=== PATIENT | female | born 1935 | race Caucasian/White ===

== ENCOUNTER → 2016-03-07 | Outpatient (CLI) | payer MEDICARE, OTHER | LOC: GMAL 15:29 | PROVIDERS: ATTEND Family Medicine | DX: D51.3 Other dietary vitamin B12 deficiency anemia (principal); R53.83 Other fatigue; E55.9 Vitamin D deficiency, unspecified ==

== ENCOUNTER → 2016-04-11 | Outpatient (CLI) | payer MEDICARE ==
--- NOTE | 2016-04-12 11:34 | CT ---
Study: CT neck. CT chest. Indication: CHEST PAIN . Facial swelling. Clinical concern for SVC syndrome. Technique: CT imaging of the neck and chest obtained with and without intravenous administration of contrast. Comparison: None. Findings: Anterior to the left parotid gland there are two nodular foci of fat density measuring up to 17 mm and 9 mm, which may reflect areas of fat necrosis or unusual lymph nodes. No pathologically enlarged cervical chain lymphadenopathy. Atherotic changes of the great vessels, aorta, coronary arteries without high-grade carotid stenosis identified. Mild cardiomegaly. No pathologically enlarged mediastinal or hilar lymphadenopathy. The SVC appears slightly contracted but is difficult to evaluate due to streak artifact related to the injection. Exclusion of thrombus cannot be performed. However, no surrounding inflammation identified about the SVC. The bilateral internal jugular veins are patent. Mucosa of the aerodigestive tract is unremarkable. Moderate emphysema. Patchy areas of scarring noted in the right middle lobe and lingula. In addition, there are several tiny areas of tree-in-bud opacities within the right middle lobe. No pleural effusion or pneumothorax. Degenerative changes of the spine. Osteopenia. Impression: Contracted appearance of the SVC, which is nonspecific. Evaluation for thrombosis is difficult given phase of injection and streak artifact from right-sided injection. If concern for thrombosis, repeat CT chest with IV contrast recommended to include venous and delayed phase sequences and have the injection at the left arm instead of the right arm. Mild tree-in-bud nodular opacity right middle lobe. This can be seen with atypical infection. Atherosclerosis. Mild cardiomegaly. Two foci of presumed fat necrosis anterior to the left parotid gland. Additional findings as above. Findings were discussed with Dr. Santoro at 1100 hours on 04/12/2016. Electronically signed by: Dane Cantor MD 04/12/2016 11:33 AM [employer]
== END ==
LOC: CT 13:14
PROVIDERS: ATTEND Family Medicine
DX: M54.2 Cervicalgia (principal); R07.9 Chest pain, unspecified; I51.7 Cardiomegaly; E27.0 Other adrenocortical overactivity; I70.90 Unspecified atherosclerosis

== ENCOUNTER → 2016-04-14 | Outpatient (CLI) | payer MEDICARE | LOC: LAB.O 08:20 | PROVIDERS: ATTEND Family Medicine | DX: E27.0 Other adrenocortical overactivity (principal) ==

== ENCOUNTER → 2016-04-22 | Outpatient (CLI) | payer MEDICARE ==
--- NOTE | 2016-04-22 14:13 | CT ---
EXAM DESCRIPTION: Chest w/Contrast CLINICAL HISTORY: SUPERIOR VENA CAVA SYNDROME COMPARISON: April 11, 2016 TECHNIQUE: Chest CT was performed with IV contrast. FINDINGS: The superior vena cava is of slightly decreased caliber, questionable clinical significance. There is no thrombus or other intrinsic filling defect or extrinsic mediastinal mass resulting SVC compression. There is no pleural or pericardial effusion. No mediastinal or hilar adenopathy. Mural calcifications are noted in the thoracic aorta and coronary arteries. The central airways are clear. Emphysematous changes are noted. Again seen is mild interstitial prominence with a few tiny nodular densities in the right middle lobe, stable. No new airspace consolidation or new lung nodule. Vascular calcifications are noted in the upper abdomen. There is colonic diverticulosis without diverticulitis only partially visualized. Degenerative changes are present in the thoracolumbar spine at several levels including mild/moderate convex leftward scoliosis only partially visualized. IMPRESSION: Slightly decreased caliber of the SVC likely normal for patient with no evidence of SVC thrombus or mediastinal mass resulting in SVC compression. Small nodular and linear densities in the right middle lobe unchanged from the previous CT. Differential considerations as described previously including components of scarring, atelectasis and/or atypical infection. Emphysema. Atherosclerotic vascular disease. Colonic diverticulosis without diverticulitis, only partially visualized. Electronically signed by: Diaz Brush MD 04/22/2016 2:12 PM PROSPECTING OBSERVER
== END | disposition home or self-care (01) ==
LOC: CT 10:16
PROVIDERS: ATTEND Family Medicine
DX: I82.210 Acute embolism and thrombosis of superior vena cava (principal)

== ENCOUNTER 2016-07-24 19:07 | Emergency (ER) | payer MEDICARE ==
--- NOTE | 2016-07-24 19:26 | ED.PDOC ---
History of Present Illness - General Chief Complaint: Lower Extremity Injury Stated Complaint: fall/right foot pain Time Seen by Provider: 07/24/16 19:23 Source: patient Exam Limitations: no limitations - History of Present Illness Initial Comments: Petra Verduzco 81 y/o female stated that she slipped and twisted left foot while walking at home.Denies neck,head ,hip injury.Pain on weight bearing left foot. Occurred: this morning Pain - Lower Extremity: moderate: Left Foot Method of Injury: twisted Improving Factors: nothing Worsening Factors: movement Allergies/Adverse Reactions: Allergies Hydrocodone [From [place]] Allergy (Mild, Verified 07/24/16 19:28) itching Home Medications: Ambulatory Orders Amlodipine Besylate-Atorvastat [Caduet 5-40 mg] 1 tab PO DAILY 07/24/16 Ascorbic Acid [Vitamin C] 1,000 mg PO DAILY 07/24/16 Aspirin [Tgt Aspirin Low Dose] 81 mg PO DAILY 07/24/16 Cholecalciferol [Vitamin D] 2,000 unit PO DAILY 07/24/16 Cyanocobalamin [Vitamin B12] 1,000 mcg PO DAILY@0707/24/16 Diphenhydramine-Acetaminophen [Tylenol Pm Extra Strength 500-25 mg] 2 tab PO BEDTIME 07/24/16 Liraglutide [Victoza] 0.6 mg SC DAILY 07/24/16 Metoprolol Succinate [Metoprolol Succinate ER] 100 mg PO DAILY@0700 07/24/16 [id number] Ethyl Esters [Lovaza 1 gm] 2 cap PO BID 07/24/16 Omeprazole Magnesium [Prilosec Otc] 20 mg PO DAILY@0700 07/24/16 Sitagliptin Phosphate [Januvia] 50 mg PO DAILY 07/24/16 Tramadol HCl 50 mg PO TID PRN #14 tab 07/24/16 Review of Systems - Review of Systems Constitutional: States: no symptoms reported EENTM: States: no symptoms reported Respiratory: States: short of breath - has copd Cardiology: States: no symptoms reported Gastrointestinal/Abdominal: States: no symptoms reported Genitourinary: States: no symptoms reported Musculoskeletal: States: see HPI, joint pain - foot left Skin: States: no symptoms reported Neurological: States: no symptoms reported Past Medical History (General) - Patient Medical History Hx of COPD: Yes Hx Cardiac Disorders: Yes Hx Hypertension: Yes Surgical History: appendectomy, other - hysterectomy,hernia repair - Social History Hx Tobacco Use: Yes - quit 5 years ago Hx Alcohol Use: No Hx Substance Use: No - Activities of Daily Living Grooming Ability: Independent Eating (Feeding) Ability: Independent Toileting Ability: Standby Assistance - Female History Patient is a Female of Child Bearing Age (10 -59 yrs old): No Family Medical History - Family History Father Family History: Unknown Mother Family History: No Known Living Status: Physical Exam - Physical Exam General Appearance: Alert, No apparent distress Eyes, Ears, Nose, Throat: PERRL/EOMI, normal ENT inspection, TMs normal, pharynx normal Neck: non-tender, full range of motion, supple Cardiovascular/Respiratory: regular rate, rhythm, no M/R/G, normal peripheral pulses Gastrointestinal/Abdominal: non-tender, no organomegaly Back: normal inspection, no CVA tenderness Thigh/Hip: normal inspection, no evidence of injury Leg: normal inspection, no evidence of injury Knee: normal inspection, no evidence of injury Ankle: normal inspection, no evidence of injury Foot: normal inspection, bone tenderness - left foot Neuro/Tendon: normal sensation, normal motor functions, responds to pain, no evidence tendon injury Mental Status: alert, oriented x 3 Skin: normal color, warm/dry Progress - EKG/XRAY/CT XRAY: left foot-no acute fracture/radiologist Departure - Departure Clinical Impression: Sprain of left foot Qualifiers: Encounter type: initial encounter Qualified Code(s): S93.602A - Unspecified sprain of left foot, initial encounter Time of Disposition: 20:02 Disposition: Discharge to Home or Self Care Instructions: DI for Foot Sprain Activity: ambulate only with walker Referrals: Saad Santoro III, MD [Primary Care Provider] - 1-2 Weeks Prescriptions: Tramadol HCl 50 mg PO TID PRN #14 tab PRN Reason: Pain Home Medications: Ambulatory Orders Amlodipine Besylate-Atorvastat [Caduet 5-40 mg] 1 tab PO DAILY 07/24/16 Ascorbic Acid [Vitamin C] 1,000 mg PO DAILY 07/24/16 Aspirin [Tgt Aspirin Low Dose] 81 mg PO DAILY 07/24/16 Cholecalciferol [Vitamin D] 2,000 unit PO DAILY 07/24/16 Cyanocobalamin [Vitamin B12] 1,000 mcg PO DAILY@0707/24/16 Diphenhydramine-Acetaminophen [Tylenol Pm Extra Strength 500-25 mg] 2 tab PO BEDTIME 07/24/16 Liraglutide [Victoza] 0.6 mg SC DAILY 07/24/16 Metoprolol Succinate [Metoprolol Succinate ER] 100 mg PO DAILY@0707/24/16 [id number] Ethyl Esters [Lovaza 1 gm] 2 cap PO BID 07/24/16 Omeprazole Magnesium [Prilosec Otc] 20 mg PO DAILY@69907/24/16 Sitagliptin Phosphate [Januvia] 50 mg PO DAILY 07/24/16 Tramadol HCl 50 mg PO TID PRN #14 tab 07/24/16 Additional Instructions: Ice pack to affected area 20 minutes 3 x a day during waking hours only
[2016-07-24 19:34] VITALS: BP 160/74; TEMP 98.2; O2SAT 88
--- NOTE | 2016-07-24 19:58 | RAD ---
EXAM: Three view(s) of the left foot. INDICATION: Pain. COMPARISON: None. FINDINGS: No acute fracture or dislocation. Vascular calcifications are noted No large soft tissue swelling. IMPRESSION: 1. No acute fracture. Electronically signed by: Sandip Meléndez MD 07/24/2016 7:58 PM CDT Workstation: [id number]
[2016-07-24] MEDS ORDERED: traMADol HCL 50 MG (ER DISP) # 6 TABS PO ONE (20:07)
== END 2016-07-24 20:18 | disposition home or self-care (01) ==
LOC: ER 19:07
DX: S93.602A Unspecified sprain of left foot, initial encounter (principal); J44.9 Chronic obstructive pulmonary disease, unspecified; I10 Essential (primary) hypertension; Z88.6 Allergy status to analgesic agent; Z79.82 Long term (current) use of aspirin; Z79.899 Other long term (current) drug therapy; X50.1XXA Overexertion from prolonged static or awkward postures, initial encounter; Y92.009 Unspecified place in unspecified non-institutional (private) residence as the place of occurrence of the external cause

== ENCOUNTER → 2016-08-10 | Outpatient (CLI) | payer MEDICARE | END | disposition home or self-care (01) | LOC: LAB.O 11:22 | PROVIDERS: ATTEND Family Medicine | DX: L65.8 Other specified nonscarring hair loss (principal) ==

== ENCOUNTER → 2016-08-22 | Outpatient (CLI) | payer MEDICARE | END | disposition home or self-care (01) | LOC: GMAL 12:51 | PROVIDERS: ATTEND Family Medicine | DX: E55.9 Vitamin D deficiency, unspecified (principal) ==

== ENCOUNTER → 2016-11-29 | Outpatient (CLI) | payer MEDICARE ==
--- NOTE | 2016-12-01 10:22 | MAM ---
EXAM DESCRIPTION: Screening Mammogram,Bilateral: Digital Mammography CLINICAL HISTORY: 81 years Female SCREENING no complaints. Sister with breast cancer. Postmenopausal. HRT five or more years ago. COMPARISON: 2-D digital screening bilateral study 03/14/2012.. No prior reports available. TECHNIQUE: Bilateral CC and MLO projection full-field images, 2-D digital screening mammographic technique. CAD was utilized. FINDINGS: The breast parenchymal density pattern is: Scattered areas of fibroglandular density. No skin thickening or nipple retraction bilateral solitary microcalcifications. Bilateral intramammary lymph nodes. No focal, stellate mass or density, focal asymmetry , and no suspicious microcalcifications bilaterally. Stable mammograms compared to the prior study, taking into account differences in mammographic technique. IMPRESSION: BI-RADS CATEGORY: 2 - BENIGN FINDINGS. FOLLOW UP: Routine digital bilateral screening, one year interval from November 2016. Written communication explaining the IMPRESSION and follow-up, will be mailed to the patient and referring health care provider. According to the [employer], yearly mammograms are recommended starting at age 40 and continuing as long as a woman is in good health. Any breast change noted on a breast self-exam should be reported promptly to the patient's healthcare provider. Breast MRI is recommended for women with an approximately 20-25% or greater lifetime risk of breast cancer, including women with a strong family history of breast or ovarian cancer and women who have been treated for Hodgkin's disease. A negative mammographic report should not delay tissue diagnosis in patients with significant clinical history or physical findings. Extremely dense breast tissue limits the sensitivity of digital mammography. Electronically signed by: Alex Felder MD 12/01/2016 10:21 AM CDT
== END ==
LOC: MAMMO 10:02
PROVIDERS: ATTEND Family Medicine
DX: Z12.31 Encounter for screening mammogram for malignant neoplasm of breast (principal)

== ENCOUNTER 2016-11-30 12:00 | Inpatient (IN) | payer MEDICARE ==
--- NOTE | 2016-11-30 12:11 | HP ---
HISTORY OF PRESENT ILLNESS: This 81 year-old white female has developed worsening shortness of breath over the last couple of days. She has a pulse oximetry machine at home and has noted it occasionally down in the upper 50s and 60% on a daily basis. She came in to be seen by Dr. Santoro and was referred to the nurse practitioner who requested Dr. Santoro look at her, who found that she was apparently having an acute exacerbation of her chronic obstructive pulmonary disease with significant hypoxia. She has had some similar symptoms about 4 years ago with pneumonia. Chest x-ray was performed and no pneumonia was specifically appreciated. She has had bronchitis about a year ago, otherwise she does well. She has no oxygen at home. The only inhalation that she takes is an inhaled steroid preparation. No bronchodilators apparently. She is getting some lab studies and the results are pending, and she is referred for direct admission to the hospital because of the significance of the hypoxia and the COPD. No significant coughing. No hemoptysis. No significant fever or chills are noted. PAST MEDICAL HISTORY: 1. Chronic obstructive pulmonary disease. 2. Family history of IHSS, yet no evidence of it was noted on her cardiac evaluations by Dr. Siddiqui in [facility]. 3. History of diabetes mellitus type 2. PAST SURGICAL HISTORY: 1. Hysterectomy. 2. Ovarian removal. 3. Appendectomy. 4. Partial colectomy due to an obstruction of the colon. 5. Three hernia surgeries. CURRENT MEDICATIONS: Please refer to list of medications reviewed by the nurse and verified for home use. ALLERGIES: OXYCODONE. FAMILY HISTORY: Positive for coronary artery disease, diabetes mellitus, cancer and strokes. SOCIAL HISTORY: She has worked as an dental office receptionist and she stopped smoking about 2012. Her in 2008 from apparent throat or tonsillar cancer. REVIEW OF SYSTEMS: Hearing and vision appears to be fairly good. LUNGS: Some marked shortness of breath is evident upon exertion in recent days with significant desaturation noted on her pulse oximetry machine. No hemoptysis or significant sputum production. CARDIOVASCULAR: Chest tightness is evident. No palpitations. GASTROINTESTINAL: No nausea, vomiting, diarrhea or blood in the stools. GENITOURINARY: No discomfort upon urination. EXTREMITIES: No significant edema. NEUROLOGIC: No focal weaknesses but she does have headaches occasionally. PHYSICAL EXAMINATION: VITAL SIGNS: Please refer to the chart. GENERAL: The patient is otherwise awake and alert. She is able to eat her diet quite well. She is able to answer questions appropriately. HEENT: Within normal limits. NECK: Supple. No carotid bruits or adenopathy noted. CHEST: Lungs have markedly diminished breath sounds with breath sounds being slightly more prominent on the right compared to the left. No significant rales or wheezing at this time. The patient appears to be able to talk with sentences but does have some difficulty in prolonged speaking because of the dyspnea associated. She does have oxygen in place. CARDIOVASCULAR: Heart rhythm is fairly good. No significant gallops. ABDOMEN: Soft, slightly distended. No organomegaly, masses or tenderness. Bowel tones are present. EXTREMITIES: Fairly good range of motion is noted. No significant pedal edema. NEUROLOGIC: No focal neurological deficits are noted. The patient is awake, alert and oriented and communicative. LABORATORY STUDIES: Laboratory studies are ordered. Verbal order from the clinic states that the patient did not show any significant infiltrative processes on chest x-ray. Reevaluate on receipt of lab studies. ASSESSMENT: 1. Chronic obstructive pulmonary disease with an acute exacerbation. 2. Significant dyspnea with associated hypoxia of a significant nature down into the 50s and 60% documented on pulse oximetry. 3. Diabetes mellitus type 2 on oral therapy as well as injections of a non- insulin medication. PLAN: The patient is admitted to the hospital for initiation of vigorous treatment, including bronchodilator therapy as well as pulmonary hygiene. She will be scheduled for ambulation studies to check on the degree of ambulation desaturation. She will be continued on DuoNeb. She was given some Decadron with the initial DuoNeb and will be continued. She will be started on Rocephin and Azithromycin after blood cultures are obtained as efforts to rule out underlying infections have contributed to her symptoms. Troponin, BNP, blood cultures are ordered. Urinalysis is pending. She was given Solu-Medrol 40 mg every 8 hours to assist with the significant respiratory distress and associated hypoxia. May eventually require oxygen at home. Evaluation to continue. Recheck evaluation as clinical course progresses. #[id number] [facility]
[2016-11-30] MEDS ORDERED: SODIUM CHLORIDE 0.9% 1000ML 1,000 ML IVS PRN (14:56)
[2016-11-30] MEDS ORDERED: GLUCAGON INJ 1 MG VIAL SUBCU PRN (14:56)
[2016-11-30] MEDS ORDERED: DEXTROSE 50% 25 GM/50 ML SYG IV PRN (14:56)
[2016-11-30] MEDS ORDERED: IV SET AND CAP CHANGE INJ INJ SCH (15:00)
[2016-11-30] MEDS ORDERED: DEXAMETHASONE INJ 1 MG, SODIUM CHLORIDE 0.9% NEB 3 ML NEB ONE ×2 (15:06)
--- NOTE | 2016-11-30 15:28 | PCM.CORE ---
Physician DVT/VTE - 2 Moderate Risk Treatments: Sequential Compression Device Pharmacological: Enoxaparin 40mg SQ Daily
[2016-11-30] MEDS: IPRATROPIUM/ALBUTEROL 3 ML VIAL NEB SCH ×3 (16:00→20:25)
[2016-11-30] MEDS ORDERED: SODIUM CHL 0.9% 50ML MIN-BAG+ 50 ML IVPB ONE ×2 (16:35→19:35)
[2016-11-30] MEDS ORDERED: cefTRIAXone SODIUM 1 GM VIAL ONE ×2 (16:36→19:35)
[2016-11-30] MEDS: LIRAGLUTIDE 0.6 MG SC SCH (17:30)
[2016-11-30] MEDS: AZITHROMYCIN 250 MG TAB PO SCH (17:32)
[2016-11-30] MEDS: LORATADINE 10 MG TAB PO SCH (17:32)
[2016-11-30] MEDS: cefTRIAXone SODIUM 1 GM in SODIUM CHL 0.9% 50ML MIN-BAG+ 50 ML IVPB SCH (17:33)
[2016-11-30] MEDS: ENOXAPARIN SODIUM 40 MG/0.4 ML SYG SUBCU SCH (17:34)
[2016-11-30] MEDS: methylPREDNISolone SODIUM SUC 40 MG/ML VIAL IV SCH ×2 (17:34→22:35)
[2016-11-30] MEDS ORDERED: SITagliptin 50 MG TAB PO ONE ×2 (17:36→19:34)
[2016-11-30] MEDS: SITagliptin 50 MG TAB PO SCH ×3 (17:37→20:48)
[2016-11-30] MEDS: INSULIN LISPRO 100 UNITS/ML PEN SUBCU SCH ×2 (17:38→21:14)
[2016-11-30] MEDS ORDERED: OMEPRAZOLE CAP 20 MG CAP ONE (19:35)
[2016-12-01] MEDS: LEVALBUTEROL NEBS 1.25 MG/3 ML VIAL NEB PRN ×2 (00:12→05:10)
[2016-12-01] MEDS: cefTRIAXone SODIUM 1 GM in SODIUM CHL 0.9% 50ML MIN-BAG+ 50 ML IVPB SCH ×2 (03:13→15:38)
[2016-12-01] MEDS: OMEPRAZOLE CAP 20 MG CAP PO SCH (06:51)
[2016-12-01] MEDS: methylPREDNISolone SODIUM SUC 40 MG/ML VIAL IV SCH ×3 (07:53→15:57)
[2016-12-01] MEDS: SODIUM CHLORIDE 0.9% (FLUSH) 10 ML SYG IV PRN ×3 (07:54→17:49)
[2016-12-01] MEDS: LIRAGLUTIDE 0.6 MG SC SCH ×3 (08:34→17:23)
[2016-12-01] MEDS: INSULIN LISPRO 100 UNITS/ML PEN SUBCU SCH ×4 (08:51→21:11)
[2016-12-01] MEDS: ASPIRIN EC 81 MG TAB PO SCH (08:57)
[2016-12-01] MEDS: METOPROLOL SUCCINATE XL 100 MG TAB PO SCH (08:57)
[2016-12-01] MEDS: LORATADINE 10 MG TAB PO SCH (08:57)
[2016-12-01] MEDS: SITagliptin 50 MG TAB PO SCH ×3 (08:58→17:23)
[2016-12-01] MEDS: IPRATROPIUM/ALBUTEROL 3 ML VIAL NEB SCH ×4 (09:19→20:11)
[2016-12-01] MEDS ORDERED: SODIUM CHL 0.9% 50ML MIN-BAG+ 50 ML IVPB ONE (15:29)
[2016-12-01] MEDS ORDERED: cefTRIAXone SODIUM 1 GM VIAL ONE (15:29)
[2016-12-01] MEDS: AZITHROMYCIN 250 MG TAB PO SCH (15:35)
[2016-12-01] MEDS: ENOXAPARIN SODIUM 40 MG/0.4 ML SYG SUBCU SCH (15:48)
--- NOTE | 2016-12-01 18:57 | PN ---
DATE: 12/01/16 SUBJECTIVE: The patient is sitting up in the bed and is able to carry on a fairly good and complete sentence communication. She states that her shortness of breath is much improved while on oxygen. She has been on oxygen in the past a number of years ago, but then stopped when her saturation on room air improved. At this time, she has had a fairly significant acute spell of hypoxia which has persisted. OBJECTIVE: At the present time, her oxygen saturation is 88% on 3 liters nasal cannula oxygen, suggesting a fairly significant degree of hypoxia present. The patient refused a chest x-ray this morning, so we will get one tomorrow to check for any type of infiltrative process not present on admission. Awaiting ambulating studies which will assist in determining the degree of oxygen required at home. LUNGS: Somewhat clearer now than they were yesterday with no significant rales , yet diminished breath sounds noted. HEART: Regular. SKIN: Her coloration is fairly good. Her son is here from [place] and enters into the discussion. ASSESSMENT: 1. Chronic obstructive pulmonary disease with an acute exacerbation requiring pulmonary hygiene, anti-inflammatory bronchodilator support and oxygen therapy. 2. Significant associated dyspnea with hypoxia of a significant nature with saturations in the 50s and 60s initially and now on room air are still in the 70s even after initiation of therapy when on room air. 3. Diabetes mellitus, type 2, on oral therapy as well as injections to assist with ongoing diabetes control. PLAN: Await respiratory ambulation studies to evaluate for oxygen requirements. We will decrease Solu-Medrol from 3 times a day to twice a day. If able to be stable and able to get oxygen for home use tomorrow, we will consider outpatient therapy at that time. The patient is feeling much improved. Repeat chest x-ray in the morning to check for any type of infiltrative process contributing to her underlying hypoxic state. Reevaluate and if stable consider outpatient therapy with close followup and management with Dr. Santoro after discharge. #[id number] [facility]
[2016-12-01] MEDS: OMEGA ACID ETHYL ESTERS PO SCH (21:04)
[2016-12-01] MEDS: SODIUM CHLORIDE 0.9% (FLUSH) 10 ML SYG IV SCH (21:05)
[2016-12-02] MEDS: cefTRIAXone SODIUM 1 GM in SODIUM CHL 0.9% 50ML MIN-BAG+ 50 ML IVPB SCH ×2 (03:45→15:35)
[2016-12-02] MEDS ORDERED: SODIUM CHL 0.9% 50ML MIN-BAG+ 50 ML IVPB ONE ×2 (04:30→15:32)
[2016-12-02] MEDS ORDERED: cefTRIAXone SODIUM 1 GM VIAL ONE ×2 (04:30→15:33)
[2016-12-02] MEDS: methylPREDNISolone SODIUM SUC 40 MG/ML VIAL IV SCH ×2 (04:35→15:37)
[2016-12-02] MEDS ORDERED: CYANOCOBALAMIN 1,000 MCG TAB ONE (06:52)
[2016-12-02] MEDS: OMEPRAZOLE CAP 20 MG CAP PO SCH (06:55)
[2016-12-02] MEDS ORDERED: CYANOCOBALAMIN 1000 MCG PO SCH (07:00)
--- NOTE | 2016-12-02 07:15 | RAD ---
EXAM DESCRIPTION: Chest,2 Views CLINICAL HISTORY: dyspnea COMPARISON: November 30, 2016 FINDINGS: Two-view chest x-ray shows enlargement of the cardiac silhouette without pulmonary vascular congestion. Tortuosity of the thoracic aorta with scattered calcified plaque is again seen. The lungs are hyperinflated. Chronic appearing increased interstitial markings are seen. Blunting of the posterior costophrenic angles is again seen. Mild degenerative changes of the spine are seen. IMPRESSION: Small left greater than right pleural effusions are again seen. Emphysematous changes to the chest are noted without acute appearing infiltrate or consolidation. Electronically signed by: Sundeep Hills MD 12/02/2016 7:14 AM CDT
[2016-12-02] MEDS: INSULIN LISPRO 100 UNITS/ML PEN SUBCU SCH ×4 (07:24→21:10)
[2016-12-02] MEDS: IPRATROPIUM/ALBUTEROL 3 ML VIAL NEB SCH ×4 (08:35→20:27)
[2016-12-02] MEDS: LORATADINE 10 MG TAB PO SCH (09:00)
[2016-12-02] MEDS: ASPIRIN EC 81 MG TAB PO SCH (09:00)
[2016-12-02] MEDS: METOPROLOL SUCCINATE XL 100 MG TAB PO SCH (09:00)
[2016-12-02] MEDS: CHOLECALCIFEROL 2,000 IU TAB PO SCH (09:03)
[2016-12-02] MEDS: ASCORBIC ACID 500 MG TAB PO SCH (09:03)
[2016-12-02] MEDS: OMEGA ACID ETHYL ESTERS PO SCH ×2 (09:03→20:16)
[2016-12-02] MEDS: SODIUM CHLORIDE 0.9% (FLUSH) 10 ML SYG IV SCH ×2 (09:03→20:17)
[2016-12-02] MEDS: LIRAGLUTIDE 0.6 MG SC SCH ×3 (11:36→17:19)
[2016-12-02] MEDS: SITagliptin 50 MG TAB PO SCH ×2 (11:36→17:19)
[2016-12-02] MEDS: AZITHROMYCIN 250 MG TAB PO SCH (15:37)
[2016-12-02] MEDS: ENOXAPARIN SODIUM 40 MG/0.4 ML SYG SUBCU SCH (15:37)
--- NOTE | 2016-12-02 17:32 | PN ---
DATE: 12/02/16 SUPERVISING PHYSICIAN: Remy Suárez M.D. SUBJECTIVE: The patient is sitting up on the side of her bed. She has no complaints of chest pain, nausea, vomiting or diarrhea. She does get short of breath with exertion but at rest she has no complaints of shortness of breath. She says at home that her oxygen saturations stay in the upper 80s most of the time. She understands that we are getting her oxygen for at home and she will need to wear it at all times. OBJECTIVE: VITAL SIGNS: She is afebrile, heart rate 72, blood pressure 153/71, respiratory rate 19, O2 sat is 90% at rest on 3 liters nasal cannula. Her ambulation study on 3 liters nasal cannula her O2 sat drops to 71%. Four minutes after ambulation it came up to 77% and after increasing her oxygen slightly to 4 liters it came up to 85. A few minutes after that it came up to 93% on 4 liters and then they backed down to 3 liters. A few minutes after that , it came up to 93% on 4 liters and then they backed down to 3 liters. RESPIRATORY: Essentially clear to auscultation but somewhat diminished throughout. No wheezing or crackles noted. HEART: Regular rate and rhythm. ABDOMEN: Soft, nondistended, non-tender. Bowel sounds are positive. EXTREMITIES: No cyanosis, clubbing or edema. NEUROLOGIC: She is awake, alert and oriented times three. LABORATORY: Her blood sugars have run between 136 and 225. RADIOLOGY: Chest x-ray per radiology interpretation shows small left greater than right pleural effusions are again seen. Emphysematous changes to the chest are noted without acute-appearing infiltrate or consolidation. All other labs and films have been reviewed via the EMR. ASSESSMENT: 1. Chronic obstructive pulmonary disease with an acute exacerbation requiring pulmonary hygiene, steroids as well as bronchodilators and oxygen supplementation. 2. Significant associated dyspnea with hypoxia of a significant nature with saturations in the 50s and 60s initially. On room air, her oxygen saturations were in the 70s. To maintain a saturation in the upper 80s she requires supplemental oxygen at all times. 3. Diabetes mellitus type 2 on oral therapy. PLAN: We will continue present supportive care. We have initiated an order for home oxygen which she understands that she will have to wear at all times. I am not sure if she is seeing a wireworker supervisor, but it may be beneficial for her to seek pulmonary medicine after discharge as well as she may benefit from pulmonary rehab. I have ordered some routine lab for in the morning. I have encouraged good pulmonary hygiene. We will continue to monitor the patient closely and follow as needed. Dr. Suárez is the collaborating physician available for consultation. [facility][id number] [facility]
[2016-12-02] MEDS ORDERED: TYLENOL PM PO SCH (21:00)
[2016-12-02] MEDS ORDERED: [UNRECOGNIZED DRUG - OTHER] PO SCH (21:00)
[2016-12-03] MEDS ORDERED: SODIUM CHL 0.9% 50ML MIN-BAG+ 50 ML IVPB ONE (03:28)
[2016-12-03] MEDS ORDERED: cefTRIAXone SODIUM 1 GM VIAL ONE (03:28)
[2016-12-03] MEDS: methylPREDNISolone SODIUM SUC 40 MG/ML VIAL IV SCH (03:45)
[2016-12-03] MEDS: cefTRIAXone SODIUM 1 GM in SODIUM CHL 0.9% 50ML MIN-BAG+ 50 ML IVPB SCH (03:49)
[2016-12-03] MEDS ORDERED: CYANOCOBALAMIN 1,000 MCG TAB ONE (05:47)
[2016-12-03] MEDS: OMEPRAZOLE CAP 20 MG CAP PO SCH (06:33)
[2016-12-03] MEDS ORDERED: CYANOCOBALAMIN 1,000 MCG TAB PO SCH (07:00)
[2016-12-03] MEDS: INSULIN LISPRO 100 UNITS/ML PEN SUBCU SCH ×2 (08:15→12:34)
[2016-12-03] MEDS: IPRATROPIUM/ALBUTEROL 3 ML VIAL NEB SCH ×2 (08:56→12:28)
[2016-12-03] MEDS: ASPIRIN EC 81 MG TAB PO SCH (09:36)
[2016-12-03] MEDS: CHOLECALCIFEROL 2,000 IU TAB PO SCH (09:36)
[2016-12-03] MEDS: ASCORBIC ACID 500 MG TAB PO SCH (09:36)
[2016-12-03] MEDS: METOPROLOL SUCCINATE XL 100 MG TAB PO SCH (09:36)
[2016-12-03] MEDS: LORATADINE 10 MG TAB PO SCH (09:36)
[2016-12-03] MEDS: OMEGA ACID ETHYL ESTERS PO SCH (09:37)
[2016-12-03] MEDS: SODIUM CHLORIDE 0.9% (FLUSH) 10 ML SYG IV SCH (09:37)
[2016-12-03 10:19] VITALS: BP 166/78; TEMP 97.1; O2SAT 87
[2016-12-03] MEDS: SITagliptin 50 MG TAB PO SCH (12:34)
[2016-12-03] MEDS: LIRAGLUTIDE 0.6 MG SC SCH (12:35)
--- NOTE | 2016-12-03 19:07 | DS ---
SUPERVISING PHYSICIAN: Remy Suárez M.D. DISCHARGE DIAGNOSIS: 1. Chronic obstructive pulmonary disease with an acute exacerbation requiring aggressive pulmonary hygiene, steroids, antibiotics as well as bronchodilators and oxygen supplementation. 2. Significant associated dyspnea with hypoxia of a significant nature with saturations in the 50s to 60s initially. On room air her oxygen saturations were in the 70s and to maintain a saturation in the upper 80s she requires supplemental oxygen at all times. 3. Diabetes mellitus type 2 well controlled being seen by her primary care physician, Dr. Santoro. HISTORY OF PRESENT ILLNESS: This is a 81 year-old female patient with an extensive history of chronic obstructive pulmonary disease that developed worsening shortness of breath several days prior to admission. Her pulse oximetry at home noted that she was in the upper 50s to low 60s on her oxygen saturations. She was seen by Dr. Santoro in clinic and was found to have an acute exacerbation of her COPD with significant hypoxia. Chest x-ray was performed and no pneumonia was specifically noted. She had had bronchitis about a year ago and otherwise she does fairly well. At home she takes inhaled steroids as well as bronchodilators, although she has not used her Albuterol much lately because she is almost out of her prescription. HOSPITAL COURSE: Initially her white count was elevated at 11.2 and her chloride was slightly low at 97. She was started on Rocephin and Azithromycin as well as IV steroids. Her BNP was also slightly elevated at 130. She was given aggressive pulmonary hygiene and her chest x-ray showed emphysematous changes to the chest, and there was no acute-appearing infiltrate or consolidation. Her ambulation study indicated that her oxygen saturation drops into the 70s on room air as well as dropping in the 70s on oxygen, although she recovered quite nicely after several minutes to the upper 80s with oxygen. She had notable dyspnea with exertion but over the course of her hospital stay she improved. Continuous oxygen was ordered for her from the [email or web address] and today she will be discharged home in stable condition. She will have continuous oxygen. Her electrolytes were basically within normal limits with her glucoses slightly elevated most likely due to her steroid therapy. Her white count normalized to 10.8 and her preliminary blood culture showed no growth after 48 hours. DISCHARGE PLAN: The patient will be discharged home in stable condition. She lives with her son. She has been instructed that she should use continuous O2. She will be discharged on several additional days of Azithromycin as well as a prednisone taper. I have also given her a prescription for Albuterol nebulizers. There is some question that she may be moving to [place] at some point in the near future. I have suggested that she see a grain elevator motor starter as well as do pulmonary rehab. She was to have a PFT done today but she refused that as she believes she may be moving, but if she will be here at any point she will most likely need a grain elevator motor starter as well as she would benefit from pulmonary rehab. She has a followup appointment with Dr. Santoro on at 9:00 AM. She is to return to Dr. Santoro' office or return to the hospital if she has any further problems or complications. DISCHARGE MEDICATIONS: 1. Januvia. 2. Tylenol PM. 3. Aspirin. 4. Vitamin D. 5. Vitamin C. 6. Prilosec. 7. Cyanocobalamin. 8. Metoprolol succinate. 9. Lovaza. 10. Victoza. 11. Amaryl. 12. Amlodipine/Atorvastatin. 13. Azithromycin. 14. Prednisone. 15. Albuterol sulfate. Dr. Suárez is the collaborating physician available for consultation. #[id number] [facility]
== END 2016-12-03 12:34 | disposition home or self-care (01) | DRG 192 ==
LOC: MS 12:00
PROVIDERS: ADMIT Family Medicine; ATTEND Nurse Practitioner Acute Care
DX: J44.1 Chronic obstructive pulmonary disease with (acute) exacerbation (principal); R09.02 Hypoxemia; E11.9 Type 2 diabetes mellitus without complications; Z90.49 Acquired absence of other specified parts of digestive tract; Z88.5 Allergy status to narcotic agent; Z87.891 Personal history of nicotine dependence

== ENCOUNTER → 2016-12-13 | Outpatient (CLI) | payer MEDICARE | LOC: GMAL 14:49 | PROVIDERS: ATTEND Family Medicine | DX: I50.9 Heart failure, unspecified (principal) ==

== ENCOUNTER → 2017-01-10 | Outpatient (CLI) | payer MEDICARE | END | disposition home or self-care (01) | LOC: GMAL 14:53 | PROVIDERS: ATTEND Family Medicine | DX: I50.9 Heart failure, unspecified (principal) ==

== ENCOUNTER → 2017-02-14 | Outpatient (CLI) | payer MEDICARE | END | disposition home or self-care (01) | LOC: GMAL 15:38 | PROVIDERS: ATTEND Family Medicine | DX: I50.9 Heart failure, unspecified (principal) ==

== ENCOUNTER → 2017-05-24 | Outpatient (CLI) | payer MEDICARE | LOC: GMAL 17:34 | PROVIDERS: ATTEND Family Medicine | DX: E55.9 Vitamin D deficiency, unspecified (principal) ==